=== PATIENT | female | born 1955 | race Caucasian/White ===

== ENCOUNTER 2025-02-19 11:31 | Emergency (ER) | payer BC ==
[~2025-02-19] VITALS: Ht 170.2 cm; Wt 79.4 kg
[2025-02-19 12:04] VITALS: TEMP 98.9
[2025-02-19] MEDS ORDERED: PANTOPRAZOLE 40 MG VIAL ONE (12:49)
[2025-02-19] MEDS ORDERED: KETOROLAC TROMETHAMINE 15 MG/ML VIAL ONE (12:49)
[2025-02-19] MEDS ORDERED: MAG HYDROX/AL HYDROX/SIMETH 30 ML UDC ONE (12:50)
[2025-02-19] MEDS ORDERED: ONDANSETRON HCL/PF 4 MG/2 ML VIAL ONE (12:50)
[2025-02-19] MEDS: PANTOPRAZOLE 40 MG VIAL IV ONE (13:00)
[2025-02-19] MEDS: IV NS 0.9% 1,000 ML BAG IV ONE (13:02)
[2025-02-19] MEDS: MAG HYDROX/AL HYDROX/SIMETH 30 ML UDC PO ONE (13:02)
[2025-02-19] MEDS: ONDANSETRON HCL/PF 4 MG/2 ML VIAL IVP ONE (13:02)
[2025-02-19] MEDS: KETOROLAC TROMETHAMINE 15 MG/ML VIAL IV ONE (13:02)
[2025-02-19 13:09] LABS: PLATELET COUNT (AUTO) 215 K/uL (150-450); RED BLOOD CELL COUNT(AUTO) 4.52 MIL/uL (4.0-5.2); RED CELL DISTRIBUTION WIDTH 15.7 % (11.5-15.0); WHITE BLOOD COUNT (AUTO) 11.7 K/uL (4.3-11.0)
[2025-02-19 13:16] LABS: CALCIUM, SERUM 8.2 mg/dL (8.5-10.1); CREATININE 0.7 mg/dL (0.6-1.3); SODIUM SERUM 142.0 mmol/L (136-145); UREA NITROGEN, BLOOD 20.0 mg/dL (7-18)
[2025-02-19 13:25] LABS: ASPARTATE AMINOTRANSFERASE 33.0 U/L (15-37); TOTAL PROTEIN, SERUM 7.4 g/dL (6.4-8.2)
[2025-02-19] MEDS ORDERED: ONDA4TAB11 PO (13:51)
[2025-02-19] MEDS ORDERED: SULI200T4 PO (13:51)
[2025-02-19 14:06] VITALS: BP 161/90; O2SAT 98
== END 2025-02-19 14:08 | disposition home or self-care (01) ==
LOC: ER 11:31
DX: K80.70 Calculus of gallbladder and bile duct without cholecystitis without obstruction (principal); R10.13 Epigastric pain; I11.9 Hypertensive heart disease without heart failure; R73.9 Hyperglycemia, unspecified
CPT/HCPCS: 99285; 96374; 76705; 96375; 71045; 96361; 93005; 85025; 80048; 83690; 80076; 36415; 82962; J1885; J2405; J7030; J2470